=== PATIENT | female | born 1975 | race Two or more races ===

== ENCOUNTER 2017-03-27 11:14 | Emergency (ER) | payer SELFPAY ==
[~2017-03-27] VITALS: Ht 162.6 cm; Wt 90.6 kg
[2017-03-27] MEDS ORDERED: LISI-170 PO (12:13)
[2017-03-27] MEDS ORDERED: ATOR20TA9 PO (12:13)
[2017-03-27] MEDS ORDERED: CITA10TA4 PO (12:14)
[2017-03-27] MEDS ORDERED: AMLO5TAB2 PO (12:15)
[2017-03-27] MEDS ORDERED: METF500T4 PO (12:15)
[2017-03-27 12:53] LABS: BLOOD UREA NITROGEN 15 mg/dL (7-18)
[2017-03-27 15:05] VITALS: BP 112/64
== END 2017-03-27 15:08 | disposition home or self-care (01) ==
LOC: ED 15:00
DX: N93.8 Other specified abnormal uterine and vaginal bleeding (principal); I10 Essential (primary) hypertension; E11.9 Type 2 diabetes mellitus without complications
CPT/HCPCS: 36415; 76830; 80048; 82040; 84703; 85025; 99285

== ENCOUNTER 2021-02-14 16:42 | Observation (INO) | payer MEDICAID, OTHER ==
[~2021-02-14] VITALS: Ht 162.6 cm; Wt 93.5 kg
[~2021-02-14 16:42] MED LIST: AMLO-150 PO; ATOR20TA37 PO; CITA10TA4 PO; LISI-170 PO; METF500T17 PO
--- NOTE | 2021-02-14 17:52 | NUR ---
BILINGUAL MEDICAL RECEPTIONIST: PT TO ROOM FROM LOBBY
[2021-02-14 18:27] LABS: BASOPHILS % (AUTO) 1 % (0-1); EOSINOPHILS % (AUTO) 4 % (1-7); LYMPHOCYTES % (AUTO) 40 % (22-44); MEAN CORPUSCULAR HEMOGLOBIN 31.7 pg (27.0-34.8); MEAN CORPUSCULAR HGB CONC 34.7 g/dL (32.4-35.8); MEAN PLATELET VOLUME 8.8 fL (7.4-10.4); MONOCYTES % (AUTO) 6 % (2-9); NEUTROPHILS % (AUTO) 50 % (42-75); PLATELET COUNT 172 x10^3/uL (130-400); RED BLOOD COUNT 4.78 x10^6/uL (3.82-5.3); RED CELL DISTRIBUTION WIDTH 12.6 % (9.6-15.2)
[2021-02-14 18:28] LABS: ALANINE AMINOTRANSFERASE 53 U/L (12-78); ALBUMIN 4.1 g/dL (3.4-5.0); ANION GAP 7 mmol/L (5-15); CHLORIDE 102 mmol/L (98-107); CREATININE 0.81 mg/dL (0.55-1.02)
[2021-02-14 18:32] LABS: ALKALINE PHOSPHATASE 104 U/L (45-117); BILIRUBIN,TOTAL 0.6 mg/dL (0.2-1.0); MD NO; TOTAL PROTEIN 8.1 g/dL (6.4-8.2); TROPONIN I < 0.015 ng/mL (0.000-0.045)
[2021-02-14] MEDS ORDERED: ASPIRIN 81 MG TABLET CHEW ONE (19:27)
[2021-02-14] MEDS ORDERED: POTASSIUM CHLORIDE 20 MEQ TAB.ER.PRT ONE (19:27)
[2021-02-14] MEDS ORDERED: POTASSIUM CHLORIDE 20 MEQ TAB.ER.PRT PO ONE (19:30)
[2021-02-14] MEDS ORDERED: ASPIRIN 81 MG TABLET CHEW PO ONE (19:30)
[2021-02-14] MEDS ORDERED: METF500T17 PO (19:40)
[2021-02-14] MEDS ORDERED: LOSA25TA12 PO (19:40)
[2021-02-14] MEDS ORDERED: ATOR40TA PO (19:40)
[2021-02-14] MEDS ORDERED: CHOL10003 PO (19:40)
[2021-02-14] MEDS ORDERED: ASPI-963 PO (19:40)
[2021-02-14] MEDS ORDERED: CHLO25TA PO (19:40)
[2021-02-14] MEDS ORDERED: GABA300C PO (19:40)
[2021-02-14 20:14] LABS: MICROSCOPIC NOT IND
[2021-02-14 20:28] VITALS: BP 120/83
[2021-02-14] MEDS ORDERED: ENALAPRILAT 1.25 MG/ML, 2ML IVPush PRN (21:30)
[2021-02-14] MEDS ORDERED: DOCUSATE 100 MG CAPSULE PO PRN (21:30)
[2021-02-14] MEDS ORDERED: MELATONIN 5 MG TABLET PO PRN (21:30)
[2021-02-14] MEDS ORDERED: LIDODERM 5% PATCH TD PRN (21:30)
[2021-02-14] MEDS ORDERED: morphine SULFATE 10 MG/ML, 1ML IVPush PRN (21:30)
[2021-02-14] MEDS ORDERED: NITROGLYCERIN 0.4 MG BOTTLE (25 TABS) SL PRN (21:30)
[2021-02-14] MEDS ORDERED: ACETAMINOPHEN 325 MG TABLET PO PRN (21:30)
[2021-02-14] MEDS: HEPARIN 5,000 UNITS/ML, 1ML SQ SCH (22:26)
[2021-02-15 00:41] LABS: TROPONIN I < 0.015 ng/mL (0.000-0.045)
[2021-02-15 01:15] VITALS: BP 112/73
[2021-02-15 04:52] LABS: ANION GAP 5 mmol/L (5-15); CALCIUM 8.8 mg/dL (8.5-10.1); CHLORIDE 107 mmol/L (98-107); CREATININE 0.59 mg/dL (0.55-1.02)
[2021-02-15 05:00] LABS: CHOL/HDL RATIO 3.4; CHOLESTEROL, TOTAL 140 mg/dL (140-239); HDL CHOL % 29 % (28-40); HDL CHOLESTEROL (DIRECT) 41 mg/dL (40-60); LDL CHOLESTEROL,CALCULATED 72 mg/dL (54-169); LDL/HDL RATIO 1.8 (0.5-3.0); TRIGLYCERIDES 136 mg/dL (50-200); TROPONIN I < 0.015 ng/mL (0.000-0.045); VLDL CHOLESTEROL 27 mg/dL (0-25)
[2021-02-15] MEDS: HEPARIN 5,000 UNITS/ML, 1ML SQ SCH ×3 (06:00→20:39)
[2021-02-15] MEDS: ASPIRIN 325 MG TABLET EC PO SCH (06:01)
[2021-02-15 07:05] VITALS: BP 101/66
[2021-02-15] MEDS ORDERED: POTASSIUM CHLORIDE 20 MEQ TAB.ER.PRT PO ONE (11:30)
[2021-02-15 12:04] VITALS: BP 118/78
[2021-02-15] MEDS: GABAPENTIN 100 MG CAPSULE PO SCH ×2 (12:05→20:39)
[2021-02-15] MEDS: LOSARTAN 50MG TABLET PO SCH (12:05)
[2021-02-15] MEDS: metFORMIN 850 MG TABLET PO SCH ×2 (12:06→20:39)
[2021-02-15 12:43] VITALS: BP 117/78
[2021-02-15 19:38] VITALS: BP 95/65
[2021-02-15] MEDS ORDERED: ATORVASTATIN 40 MG TABLET PO SCH (21:00)
[2021-02-16 00:26] VITALS: BP 101/70
[2021-02-16] MEDS: ASPIRIN 325 MG TABLET EC PO SCH (05:04)
[2021-02-16] MEDS: HEPARIN 5,000 UNITS/ML, 1ML SQ SCH ×2 (05:04→13:30)
[2021-02-16 07:44] VITALS: BP 108/72
[2021-02-16] MEDS: metFORMIN 850 MG TABLET PO SCH (07:52)
[2021-02-16] MEDS: GABAPENTIN 100 MG CAPSULE PO SCH (07:53)
[2021-02-16] MEDS: LOSARTAN 50MG TABLET PO SCH (07:53)
[2021-02-16] MEDS ORDERED: REGADENOSON 0.4 MG/5 ML SYRINGE ONE (10:29)
[2021-02-16 14:39] VITALS: BP 132/87
[2021-02-16] MEDS ORDERED: DICL100G19 TP (14:57)
[2021-02-16] MEDS ORDERED: metFORMIN 850 MG TABLET PO SCH (17:00)
== END 2021-02-16 16:20 | disposition home or self-care (01) ==
LOC: ED 18:07 → EDIP 20:02 → INTOOBSV 20:02 → 5SO 20:26 → DCLOUNGE 02-16 16:11 → UNDODISIN 02-16 16:20
PROVIDERS: ADMIT Internal Medicine; ATTEND Internal Medicine
DX: I20.9 Angina pectoris, unspecified (principal); M94.0 Chondrocostal junction syndrome [Tietze]; E87.6 Hypokalemia; E11.42 Type 2 diabetes mellitus with diabetic polyneuropathy; I10 Essential (primary) hypertension; E78.5 Hyperlipidemia, unspecified; E66.01 Morbid (severe) obesity due to excess calories; I83.90 Asymptomatic varicose veins of unspecified lower extremity; Z86.31 Personal history of diabetic foot ulcer; Z68.35 Body mass index [BMI] 35.0-35.9, adult; Z79.82 Long term (current) use of aspirin; Z79.899 Other long term (current) drug therapy
CPT/HCPCS: 36415; 71045; 78452; 80048; 80053; 80061; 81003; 82962; 83036; 83735; 84100; 84443; 84484; 85025; 85379; 93005; 93017; 93306; 93356; 96372; 99285; A9502; G0378; J1644; J2785